=== PATIENT | female | born 1950 | race Caucasian/White ===

== ENCOUNTER 2018-02-06 14:36 | Emergency (ER) | payer OTHER, BC ==
[~2018-02-06] VITALS: Ht 152.4 cm; Wt 100.0 kg
[~2018-02-06 14:36] MED LIST: ADVIL200 M1 PO; ASPIR 8181 M1 PO; ASPIRIN325 MG PO; ATORVASTATIN CA80 MG PO; METOPROLOL SUCC50 MG PO; PRINIVIL20 MG PO; TIROSINT100 MCG PO; VITAMIN E400 UNIT PO; ZYRTEC10 M2 PO
[2018-02-06 15:11] LABS: HEMATOCRIT 39.2 % (36.0-46.0); HEMOGLOBIN 13.1 G/DL (11.9-15.5); MCH 28.1 PG (29.0-34.0); MCHC 33.4 G/DL (30.0-36.0); MCV 84.1 FL (83-99); PLATELET COUNT 198 K/uL (156-360); RBC DIS.WIDTH-CV 13.2 % (11.8-14.6); RBC DIS.WIDTH-SD 40.4 % (39-53); RED BLOOD COUNT 4.66 M/uL (3.80-5.20); WHITE BLOOD COUNT 11.4 K/uL (4.1-10.2)
[2018-02-06 15:20] LABS: ALBUMIN 4.2 g/dL (3.2-4.8); CHLORIDE 106 mEq/L (99-109); SODIUM 137 mEq/L (136-147)
[2018-02-06 15:22] LABS: GLUCOSE 133 mg/dL (70-99)
[2018-02-06 15:24] LABS: TOTAL BILIRUBIN 0.4 mg/dL (0.0-1.0)
[2018-02-06 15:26] LABS: ALKALINE PHOSPHATASE 72 IU/L (3-129); CREATININE 1.5 mg/dL (0.6-1.3); GFR ESTIMATE (CALCULATED) 37 mL/min/
[2018-02-06 15:27] LABS: UREA NITROGEN (BUN) 31 mg/dL (9-23)
[2018-02-06 15:28] LABS: AST (GOT) 19 IU/L (2-34)
[2018-02-06 15:29] LABS: ALT (GPT) 27 IU/L (3-49); LIPASE 24 U/L (1.0-51.0)
[2018-02-06 16:35] LABS: APPEARANCE CLEAR ((CLEAR)); BILIRUBIN NEGATIVE; BLOOD LARGE; COLOR YELLOW ((YELLOW)); GLUCOSE (STRIP) NEGATIVE; KETONES NEGATIVE; LEUKOCYTES TRACE; NITRITE NEGATIVE; PROTEIN (STRIP) NEGATIVE; SPECIFIC GRAVITY 1.013 (1.000-1.030); UROBILINOGEN 0.2 MG/DL (0.2-1.0)
[2018-02-06 16:42] LABS: BACTERIA RARE /HPF; EPITHELIAL CELLS RARE /HPF; MUCUS TRACE /LPF; RED BLOOD CELLS TNTC /HPF (0-5); WHITE BLOOD CELLS 0-5 /HPF (0-5)
[2018-02-06] MEDS ORDERED: ZOFRAN ODT4 MG PO (17:44)
[2018-02-06] MEDS ORDERED: PERCOCET 5/31 TABLET PO (17:44)
[2018-02-06] MEDS ORDERED: NAPROXEN500 MG PO (17:44)
[2018-02-06] MEDS ORDERED: FLOMAX0.4 MG PO (17:44)
[2018-02-06 18:15] VITALS: BP 125/68
== END 2018-02-06 18:16 | disposition home or self-care (01) ==
LOC: RME 14:36 → EME 14:36 → RME 18:16
PROVIDERS: Nurse Practitioner Family
DX: N13.2 Hydronephrosis with renal and ureteral calculous obstruction (principal); N17.9 Acute kidney failure, unspecified; E86.0 Dehydration; Z87.442 Personal history of urinary calculi; I10 Essential (primary) hypertension; Z87.891 Personal history of nicotine dependence
CPT/HCPCS: 74176; 80053; 81003; 83690; 85027; 99281; 99285; J1885; J2405; J3010; J7030